=== PATIENT | male | born 1955 | race Caucasian/White ===

== ENCOUNTER → 2016-11-04 | Outpatient (CLI) | payer MEDICARE ==
--- NOTE | 2016-11-04 13:13 | XR ---
EXAMINATION TYPE: XR chest 2V DATE OF EXAM: 11/04/2016 COMPARISON: NONE HISTORY: Annual physical exam. COPD per order. TECHNIQUE: Frontal and lateral views of the chest are obtained. FINDINGS: There is no focal air space opacity, pleural effusion, or pneumothorax seen. The cardiac silhouette size is within normal limits. Age indeterminate fractures right posterior lateral third, f ifth, and sixth ribs are most likely chronic in age, clinical correlation advised. IMPRESSION: No acute cardiopulmonary process.
== END | disposition home or self-care (01) ==
LOC: RADXRMAIN 12:13
PROVIDERS: ATTEND Family Medicine
DX: J44.0 Chronic obstructive pulmonary disease with (acute) lower respiratory infection (principal)
CPT/HCPCS: 71020

== ENCOUNTER → 2019-09-21 | Outpatient (CLI) | payer MEDICARE ==
[2019-09-21 11:43] LABS: African American GFR (CKD) >90 (>60 ml/min/1.73 sqM); Blood Urea Nitrogen 12 mg/dL (9-20); Non-African American GFR(CKD) >90 (>60 ml/min/1.73 sqM)
--- NOTE | 2019-09-21 14:24 | CT ---
EXAMINATION TYPE: CT lumbar spine wo/w con DATE OF EXAM: 09/21/2019 COMPARISON: MRI lumbar spine 12/11/2010 HISTORY: Low back pain CT DLP: 817.30 mGycm Automated exposure control for dose reduction was used. CONTRAST: CT scan of the lumbar is performed without and with IV Contrast, patient injected with 100 mL of Isov ue 300. Enhanced CT of the lumbar spine was performed. Bone and soft tissue window settings are submitted as well as coronal and sagittal reconstructions. Vertebral body heights are maintained. There is normal lumbar alignment. No evidence of spondylolisth esis. Redemonstrated degenerative endplate changes. Multilevel anterior osteophytic spurring. L1-L2: Normal disc space height. No disc herniation protrusion or central stenosis. No facet joint arthropathy. No evidence for foraminal encroachment. L2-L3: Normal disc space height. Minimal posterior disc bulge. No central stenosis. No facet joint a rthropathy. No evidence for foraminal encroachment. L3-L4: Mild loss of disc space height. Posterior disc bulge with mild central stenosis. There is face t joint arthropathy. Mild right and moderate left foraminal encroachment. L4-L5: Mild loss of disc space height. Posterior disc bulge effaces the ventral aspect of the thecal sac. Mild central stenosis. There is facet joint arthropathy. Mild to moderate bilateral foraminal en croachment. L5-S1: Moderate loss of disc space height. Mild posterior disc bulge. No central stenosis. There is f acet joint arthropathy. Severe bilateral foraminal encroachment. IMPRESSION: Degenerative disc disease with mild central stenosis at L3-L4 and L4-L5. Facet arthropathy with varyi ng degrees of foraminal encroachment, most severe at L5-S1.
== END | disposition home or self-care (01) ==
LOC: RADCTMAIN 10:29
PROVIDERS: ATTEND Psychiatry & Neurology Neurology
DX: M48.061 Spinal stenosis, lumbar region without neurogenic claudication (principal); M51.36 Other intervertebral disc degeneration, lumbar region; M47.896 Other spondylosis, lumbar region; Z88.0 Allergy status to penicillin; M54.5 Low back pain
CPT/HCPCS: 82565; 84520; 72133; 36415; Q9967